=== PATIENT | female | born 1980 | race Caucasian/White ===

== ENCOUNTER → 2020-10-27 10:03 | Outpatient (CLI) | payer OTHER, SELFPAY ==
[2020-10-27 10:42] LABS: Hematocrit 35.8 % (36-46); Hemoglobin 11.7 g/dL (12.0-16.0); Mean Corpuscular HGB Conc 32.6 % (30-36); Mean Corpuscular Hemoglobin 27.5 PG (26-34); Mean Corpuscular Volume 84.5 fL (80-100); Platelet Count 307 X10^3/uL (150-400); Red Blood Cell Count 4.23 X10^6/uL (4.0-5.2); Red Cell Distribution Width 13.8 % (11.6-14.8); White Blood Cell Count 6.5 X10^3/uL (4.5-11.0)
[2020-10-27 11:11] LABS: Alanine Aminotransferase 11 IU/L (<35); Albumin Globulin Ratio 1.5 (1.0-2.8); Alkaline Phosphatase 44 U/L (38-126); Aspartate Aminotransferase 16 IU/L (14-36); BUN Creatinine Ratio 13.2 (6-22); Bilirubin Total 0.6 mg/dL (0.2-1.3); Blood Urea Nitrogen 7 mg/dL (7-17); Calcium 9.2 mg/dL (8.4-10.2); Carbon Dioxide 23 mmol/L (22-32); Chloride 107 mmol/L (98-107); Cholesterol 190 mg/dL (140-199); Estimated Glomerular Filt Rate > 60.0 mL/min (>60); Globulin 2.6 g/dL (1.7-4.1); Glucose 93 mg/dL (70-100); HDL Cholesterol 70 mg/dL (40-60); HEMOLYSIS < 15 (0-50); LDL Cholesterol Calculated 108 mg/dL (<100); Potassium 4.1 mmol/L (3.4-5.1); Sodium 137 mmol/L (137-145); Total Protein 6.6 g/dL (6.3-8.2); Triglycerides 59 mg/dL (35-150)
== END ==
PROVIDERS: PCP Nurse Practitioner Family; Referring Provider Nurse Practitioner Family; Visit Provider Nurse Practitioner Family
DX: Z00.00 Encounter for general adult medical examination without abnormal findings (principal); Z13.6 Encounter for screening for cardiovascular disorders
CPT/HCPCS: 36415; 80053; 80061; 85027

== ENCOUNTER → 2020-12-01 14:17 | Outpatient (CLI) | payer OTHER, SELFPAY ==
[2020-12-01 17:28] LABS: COVID19 -Nasal RAPID POSITIVE (Negative)
== END ==
PROVIDERS: PCP Nurse Practitioner Family; Visit Provider Physician Assistant
DX: U07.1 COVID-19 (principal)
CPT/HCPCS: 87635

== ENCOUNTER → 2023-08-12 08:20 | Outpatient (CLI) | payer OTHER, SELFPAY ==
[2023-08-12 09:20] LABS: Add Manual Diff / Slide Review NO; Basophils Absolute Auto 100 /uL (0-100); Basophils Percent Auto 1.2 % (0-2); Eosinophils Absolute Auto 100 /uL (0-450); Hematocrit 37.3 % (36-46); Hemoglobin 12.4 g/dL (12.0-16.0); Lymphocytes Absolute Auto 1800 /uL (1100-4500); Lymphocytes Percent Auto 34.8 % (25-40); Mean Corpuscular HGB Conc 33.4 % (30-36); Mean Corpuscular Hemoglobin 28.8 PG (26-34); Mean Corpuscular Volume 86.3 fL (80-100); Monocytes Absolute Auto 400 /uL (0-900); Monocytes Percent Auto 7.7 % (3-14); Neutrophils Absolute Auto 2900 /uL (1500-7000); Neutrophils Percent Auto 55.3 % (50-75); Platelet Count 336 X10^3/uL (150-400); Red Blood Cell Count 4.32 X10^6/uL (4.0-5.2); Red Cell Distribution Width 13.4 % (11.6-14.8); White Blood Cell Count 5.3 X10^3/uL (4.5-11.0)
[2023-08-12 09:46] LABS: Alanine Aminotransferase 13 IU/L (<35); Albumin 4.2 g/dL (3.5-5.0); Albumin Globulin Ratio 1.7 (1.0-2.8); Alkaline Phosphatase 49 U/L (38-126); Aspartate Aminotransferase 18 IU/L (14-36); Bilirubin Total 0.7 mg/dL (0.2-1.3); Blood Urea Nitrogen 6 mg/dL (7-17); Calcium 9.1 mg/dL (8.4-10.2); Carbon Dioxide 25 mmol/L (22-32); Chloride 109 mmol/L (98-107); Cholesterol 198 mg/dL (140-199); Estimated Glomerular Filt Rate > 60 mL/min (>60); Globulin 2.5 g/dL (1.7-4.1); Glucose 89 mg/dL (70-100); HDL Cholesterol 65 mg/dL (40-60); HEMOLYSIS < 15 (0-50); LDL Cholesterol Calculated 121 mg/dL (<100); Potassium 4.1 mmol/L (3.4-5.1); Sodium 139 mmol/L (137-145); Total Protein 6.7 g/dL (6.3-8.2); Triglycerides 58 mg/dL (35-150)
[2023-08-12 10:02] LABS: Free T3, Triiodothyronine Free 4.07 pg/mL (2.77-5.27); Free T4, Direct Thyroxine 1.19 ng/dL (0.78-2.19)
[2023-08-12 10:18] LABS: Ferritin 7 ng/mL (6-137)
[2023-08-12 10:19] LABS: Thyroid Stimulating Hormone 0.999 uIU/mL (0.47-4.68)
[2023-08-13 08:00] LABS: Thyroid Peroxidase Antibodies <9 IU/mL (0-34)
== END ==
PROVIDERS: PCP Naturopath; Referring Provider Naturopath; Visit Provider Naturopath
DX: Z00.00 Encounter for general adult medical examination without abnormal findings (principal); R53.83 Other fatigue
CPT/HCPCS: 36415; 80053; 80061; 82728; 84439; 84443; 84481; 85025; 86376

== ENCOUNTER → 2023-09-05 07:45 | Outpatient (CLI) | payer OTHER, SELFPAY ==
--- NOTE | 2023-09-05 07:45 | DI.MG.S_ITS ---
BILATERAL DIGITAL SCREENING MAMMOGRAM 3D/2D WITH CAD: 09/05/2023 CLINICAL: Baseline exam. Routine screening. No prior exams were available for comparison. Both breasts are heterogeneously dense, which may obscure small masses (category c / 51-75% glandular tissue). Current study was also evaluated with a Computer Aided Detection (CAD) system. There is an irregular high density focal asymmetry with an obscured margin in the left breast at 11 o'clock posterior depth. No other significant masses, calcifications, or other findings are seen in either breast. IMPRESSION: INCOMPLETE: NEEDS ADDITIONAL IMAGING EVALUATION The irregular high density focal asymmetry in the left breast is indeterminate. Additional views with possible ultrasound are recommended. Based on the Tyrer Cuzick model (a risk assessment model) the patient's lifetime risk is 11.3% and her 10 year risk is 1.7%. According to the ACR, ACS, and NCCN guidelines, an annual breast MRI exam along with mammogram is recommended if the patient's lifetime risk is 20% or greater. This exam was interpreted at Station ID: [id number]. NOTE: For mammograms, a report in lay terms will be sent to the patient. Approximately 15% of breast malignancies will not be visualized mammographically. In the management of a palpable breast mass, a negative mammogram must not discourage biopsy of a clinically suspicious lesion. Electronically Signed By: Dianne harvey/jacey:09/05/2023 17:18:03 letter sent: Additional Imaging Needed ACR BI-RADS Category 0: Incomplete 3340F
== END ==
PROVIDERS: PCP Naturopath; Referring Provider Naturopath; Visit Provider Naturopath
DX: Z12.31 Encounter for screening mammogram for malignant neoplasm of breast (principal); R92.323 Mammographic fibroglandular density, bilateral breasts
CPT/HCPCS: 77063; 77067

== ENCOUNTER → 2023-10-31 10:13 | Outpatient (CLI) | payer OTHER, SELFPAY ==
--- NOTE | 2023-10-31 | DI.US.S_ITS ---
PROCEDURE: US BREAST LT LIMITED COMPARISON: None. INDICATIONS: ADD VIEWS LEFT BREAST FINDINGS: IMPRESSION: Dictated by: Ashutosh Mcpherson M.D. on 10/31/2023 at 11:12 Approved by: Ashutosh Mcpherson M.D. on 10/31/2023 at 11:19
--- NOTE | 2023-10-31 10:31 | DI.MG.S_ITS ---
Patient Name: NANCI PERDUE date: 1980 Sex: F Attending Physician: Esteban Indications: Date: 10/31/2023 11:15 At the request of: GONZALO RAMESH Procedure: MM special view LT UNILATERAL LEFT DIGITAL DIAGNOSTIC MAMMOGRAM 3D/2D WITH ADDITIONAL VIEWS: 10/31/2023 CLINICAL: Additional evaluation requested from prior study. Comparison is made to exam dated: 09/05/2023 mammogram - [facility]. The left breast is heterogeneously dense, which may obscure small masses (category c / 51-75% glandular tissue). There is a focal asymmetry in the left breast at 10-11 o'clock posterior depth. This is seen in additional views. There also is a cluster of focal asymmetries in the left breast at 2 o'clock middle depth. No other significant masses or calcifications are seen in the breast. IMPRESSION: INCOMPLETE: NEEDS ADDITIONAL IMAGING EVALUATION The focal asymmetry in the left breast at 10-11 o'clock posterior depth is indeterminate. An ultrasound is recommended. The cluster of focal asymmetries in the left breast at 2 o'clock middle depth is indeterminate. An ultrasound is recommended. Based on the Tyrer Cuzick model (a risk assessment model) the patient's lifetime risk is 11.3% and her 10 year risk is 1.7%. According to the ACR, ACS, and NCCN guidelines, an annual breast MRI exam along with mammogram is recommended if the patient's lifetime risk is 20% or greater. Continued Report - Page 2 of 2 Patient Name: NANCI PERDUE date: 1980 Sex: F Attending Physician: Esteban Indications: Date: 10/31/2023 11:15 At the request of: GONZALO RAMESH Procedure: MM special view LT This exam was interpreted at Station ID: [id number]. NOTE: For mammograms, a report in lay terms will be sent to the patient. Approximately 15% of breast malignancies will not be visualized mammographically. In the management of a palpable breast mass, a negative mammogram must not discourage biopsy of a clinically suspicious lesion. Electronically Signed By: Ashutosh Mcpherson M.D. lc/:10/31/2023 11:15:42 ACR BI-RADS Category 0: Incomplete 3340F
--- NOTE | 2023-10-31 10:51 | DI.US.S_ITS ---
Patient Name: NANCI PERDUE date: 1980 Sex: F Attending Physician: Esteban Indications: Date: 10/31/2023 11:19 At the request of: GONZALO RAMESH Procedure: US breast LT limited LIMITED ULTRASOUND OF LEFT BREAST AND AXILLA: 10/31/2023 CLINICAL: Patient returns today to evaluate a focal asymmetry in the left breast. Comparison is made to exams dated: 10/31/2023 mammogram and 09/05/2023 mammogram - [facility]. Color flow and real-time ultrasound of the left breast 2 o'clock, 10 o'clock, and axilla regions were performed. [place] scale images of the real-time examination were reviewed. There is a possible 0.6 cm x 0.7 cm x 0.6 cm complicated cyst in the left breast at 10 o'clock posterior depth 8 cm from the nipple. This correlates with mammography findings. There also is a possible cluster of complicated cysts in the left breast at 2 o'clock middle depth 3 cm from the nipple, largest measuring 1.3cm. This correlates with mammography findings. IMPRESSION: PROBABLY BENIGN The possible 0.6 cm x 0.7 cm x 0.6 cm complicated cyst in the left breast at 10 o'clock posterior depth is probably benign. The possible cm cluster of complicated cysts in the left breast at 2 o'clock middle depth is probably benign, largest measuring up to 1.3cm. A follow-up mammogram and an ultrasound in 6 months is recommended to demonstrate stability. This exam was interpreted at Station ID: [id number]. Electronically Signed By: Ashutosh Mcpherson M.D. lc/:10/31/2023 11:19:01 Continued Report - Page 2 of 2 Patient Name: NANCI PERDUE date: 1980 Sex: F Attending Physician: Esteban Indications: Date: 10/31/2023 11:19 At the request of: GONZALO RAMESH Procedure: US breast LT limited letter sent: Followup Recommended Ultrasound BI-RADS: 3 Probably benign
== END ==
PROVIDERS: PCP Naturopath; Referring Provider Naturopath; Visit Provider Naturopath
DX: R92.2 Inconclusive mammogram (principal); N60.02 Solitary cyst of left breast; R92.332 Mammographic heterogeneous density, left breast
CPT/HCPCS: 76642; 77065; G0279

== ENCOUNTER → 2024-11-05 08:18 | Outpatient (CLI) | payer OTHER, SELFPAY ==
--- NOTE | 2024-11-05 08:20 | DI.US.S_ITS ---
MM diagnostic mammo BI, US breast LT limited: 11/05/2024 BI-RADS: 3 CLINICAL: 44-year old female for bilateral diagnostic mammogram and left diagnostic breast ultrasound. The patient presents for a follow-up. Tyrer-Cuzick lifetime risk of 9.7%. No personal or first-degree family history of breast cancer. PRIOR EXAMS 10/31/2023, 09/05/2023. MAMMOGRAPHY TECHNIQUE: 2D and 3D (tomosynthesis) digital mammographic views obtained, with additional images as needed for full coverage. Current study was also evaluated with a Computer Aided Detection (CAD) system. ULTRASOUND TECHNIQUE: TARGETED Left Breast Ultrasound: Real-time ultrasound exam was performed focused to area of clinical and/or imaging concern. Real-time leal scale and color doppler imaging of the area of clinical interest was performed with image documentation. DENSITY C. The breasts are heterogeneously dense, which may obscure small masses. MAMMOGRAPHY FINDINGS Right: No suspicious mass, asymmetry, microcalcification, or other abnormality seen. Left (finding-1): Upper Inner Quadrant, Posterior depth, measuring 0.5 x 0.3cm - previously measuring (10/31/2023) 0.8 x 0.5cm: Correlating with prior imaging concern, there is a focal asymmetry present that has decreased in size. Left (finding-2): Upper Outer at 2:00, Middle depth, measuring 1.5cm: There are multiple stable focal asymmetries present. Left (finding-3): Upper Outer Quadrant, Middle depth, measuring 0.9cm: There is a stable focal asymmetry present. ULTRASOUND FINDINGS Left: Upper Outer at 1:00, 1 cm from nipple, measuring 0.5 x 0.5 x 0.5 cm: There is a complicated cyst present. This is an incidental finding. Left (finding-3): Upper Outer at 2:00, 2 cm from nipple, measuring 1 x 0.5 x 0.7 cm: Correlating with findings on mammogram there is a complicated cyst present. Left (finding-2): Upper Outer at 2:00, 6 cm from nipple, measuring 1.6 x 1.1 x 1.9 cm - previously measuring (10/31/2023) 1.4 x 0.9 x 2 cm: Correlating with findings on mammogram, there are clustered macrocysts. This finding was remeasured on the previous study 10/31/2023, and is similar allowing for differences in technique. Left (finding-1): Upper Inner at 10:00, 8 cm from nipple, measuring 0.4 x 0.5 x 0.2 cm - previously measuring (10/31/2023) 0.7 x 0.5 x 0.6 cm: Correlating with findings on mammogram there is a cyst vs solid mass that is non-parallel. This finding is favored to be benign given interval decrease in size, and likely represents a complicated cyst. IMPRESSION: Right * No evidence of malignancy. Left (Complicated Cyst): Upper Outer at 1:00, 1 cm from nipple, measuring 0.5 x 0.5 x 0.5 cm * Probably Benign. Left (Complicated Cyst): Upper Outer at 2:00, 2 cm from nipple, measuring 1 x 0.5 x 0.7 cm * Probably Benign. Left (Simple Cyst): Upper Outer at 2:00, 6 cm from nipple, measuring 1.6 x 1.1 x 1.9 cm - previously measuring (10/31/2023) 1.4 x 0.9 x 2 cm * Probably Benign. RECOMMENDATIONS Left: Upper Outer at 1:00, 1 cm from nipple * Six month followup with diagnostic ultrasound. Left: Upper Outer at 2:00, 2 cm from nipple * Six month followup with diagnostic ultrasound and diagnostic mammography. Left: Upper Outer at 2:00, 6 cm from nipple * Six month followup with diagnostic ultrasound and diagnostic mammography. COMMENTS: Findings and recommendations were conveyed to the patient during today's evaluation. OVERALL ASSESSMENT CATEGORY BI-RADS-3: Probably Benign. ELECTRONICALLY SIGNED: Nancy Verdugo M.D. on 11/05/2024 at 12:09:03 PM PT Interpreting Station ID: [id number]
== END ==
LOC: MAMMO 08:20
PROVIDERS: PCP Naturopath; Referring Provider Naturopath; Visit Provider Naturopath
DX: R92.8 Other abnormal and inconclusive findings on diagnostic imaging of breast (principal); R92.333 Mammographic heterogeneous density, bilateral breasts; N64.89 Other specified disorders of breast; N60.02 Solitary cyst of left breast
CPT/HCPCS: 76642; 77066; G0279